=== PATIENT | female | born 1990 ===

== ENCOUNTER 2017-05-16 13:35 | Inpatient (IN) | payer OTHER ==
[~2017-05-16] VITALS: Ht 170.2 cm; Wt 85.3 kg
[2017-06-08] MEDS ORDERED: PRENATAL GUMMI1 EACH PO (09:54)
== END 2017-06-10 14:26 | disposition home or self-care (01) | DRG 775 ==
LOC: SURG-SUITE 06-08 09:16 → LDR 06-08 09:16 → SURG-SUITE 06-08 18:54 → LDR 06-12 13:35
PROC: 0HQ9XZZ Repair Perineum Skin, External Approach (ICD-10-PCS; principal; 2017-06-08)
PROC: 10E0XZZ Delivery of Products of Conception, External Approach (ICD-10-PCS; 2017-06-08)
PROC: 4A1HXCZ Monitoring of Products of Conception, Cardiac Rate, External Approach (ICD-10-PCS; 2017-06-08)
PROC: 4A033R1 Measurement of Arterial Saturation, Peripheral, Percutaneous Approach (ICD-10-PCS; 2017-06-08)
DX: O70.0 First degree perineal laceration during delivery (principal); Z3A.39 39 weeks gestation of pregnancy; Z37.0 Single live birth

== ENCOUNTER 2017-06-06 12:55 | Outpatient (CLI) | payer OTHER | END 2017-06-06 13:41 | disposition home or self-care (01) | LOC: NST 12:55 | DX: Z34.83 Encounter for supervision of other normal pregnancy, third trimester (principal) ==